=== PATIENT | female | born 1990 | race Caucasian/White ===

== ENCOUNTER → 2017-03-02 | Outpatient (CLI) | payer BC, OTHER ==
[~2017-03-02] MED LIST: ALLEGRA ALLERGY60 MG PO; CETI5 PO; FERSU90EL; IBUP800 PO; LONG ACTING NA120 MG PO; Verotin-Gr Cap1 EACH PO
[2017-03-03 03:04] LABS: Source Cervix
== END ==
LOC: LAB 09:52
PROVIDERS: Obstetrics & Gynecology
DX: Z11.3 Encounter for screening for infections with a predominantly sexual mode of transmission (principal); O30.099 Twin pregnancy, unable to determine number of placenta and number of amniotic sacs, unspecified trimester
CPT/HCPCS: 87491; 87591; G0123

== ENCOUNTER → 2017-08-10 | Outpatient (CLI) | payer BC, OTHER ==
[~2017-08-10] MED LIST changes: -FERSU90EL; -IBUP800 PO; -Verotin-Gr Cap1 EACH PO
== END ==
LOC: LAB 11:03 → LAB SHORT 11:03
DX: O30.099 Twin pregnancy, unable to determine number of placenta and number of amniotic sacs, unspecified trimester (principal)
CPT/HCPCS: 87081; 87653

== ENCOUNTER 2017-08-30 04:13 | Inpatient (IN) | payer BC, OTHER ==
[~2017-08-30] VITALS: Ht 170.2 cm; Wt 83.5 kg
[2017-08-30 04:38] LABS: BASOPHILS ABSOLUTE AUTO 0.02 K/mm3 (0.00-0.23); BASOPHILS PERCENT AUTO 0 % (0-2); EOSINOPHILS ABSOLUTE AUTO 0.34 K/mm3 (0.00-0.68); EOSINOPHILS PERCENT AUTO 4 % (0-6); Hematocrit 33.3 % (33.0-51.0); Hemoglobin 10.5 g/dL (11.5-16.0); IMMATURE GRAN ABSOLUTE AUTO 0.07 K/mm3 (0.00-0.10); IMMATURE GRAN PERCENT AUTO 1 % (0-1); LYMPHOCYTES ABSOLUTE AUTO 2.21 K/mm3 (0.84-5.20); LYMPHOCYTES PERCENT AUTO 25 % (21-46); MONOCYTES ABSOLUTE AUTO 0.56 K/mm3 (0.16-1.47); MONOCYTES PERCENT AUTO 6 % (4-13); Mean Corpuscular HGB 26.6 pg (26.0-34.0); Mean Corpuscular HGB Conc 31.5 g/dL (31.5-36.5); Mean Corpuscular Volume 85 fL (80-100); Mean Platelet Volume 11.6 fL (9.1-12.4); NEUTROPHILS ABSOLUTE AUTO 5.63 K/mm3 (1.96-9.15); NEUTROPHILS PERCENT AUTO 64 % (41-73); Platelet Count 173 K/mm3 (150-400); RDW Coefficient Variation 13.9 % (11.7-14.2); RDW Standard Deviation 42.9 fL (35.1-46.3); Red Blood Cell Count 3.94 M/mm3 (3.80-5.20); White Blood Cell Count 8.83 K/mm3 (4.00-11.30)
[2017-08-30] MEDS ORDERED: Verotin-Gr Cap1 EACH PO (04:39)
[2017-08-31 06:15] LABS: Hematocrit 28.7 % (33.0-51.0); Hemoglobin 9.3 g/dL (11.5-16.0); Mean Corpuscular HGB 27.6 pg (26.0-34.0); Mean Corpuscular HGB Conc 32.4 g/dL (31.5-36.5); Mean Corpuscular Volume 85 fL (80-100); Mean Platelet Volume 11.9 fL (9.1-12.4); Platelet Count 149 K/mm3 (150-400); RDW Coefficient Variation 13.9 % (11.7-14.2); Red Blood Cell Count 3.37 M/mm3 (3.80-5.20); White Blood Cell Count 11.99 K/mm3 (4.00-11.30)
[2017-08-31] MEDS ORDERED: FERSU90EL (14:23)
[2017-08-31] MEDS ORDERED: IBUP800 PO (14:24)
== END 2017-08-31 15:30 | disposition home or self-care (01) | DRG 775 ==
LOC: BC 04:13
PROVIDERS: Obstetrics & Gynecology
PROC: 10E0XZZ Delivery of Products of Conception, External Approach (ICD-10-PCS; principal; 2017-08-30)
PROC: 10907ZC Drainage of Amniotic Fluid, Therapeutic from Products of Conception, Via Natural or Artificial Opening (ICD-10-PCS; 2017-08-30)
PROC: 3E033VJ Introduction of Other Hormone into Peripheral Vein, Percutaneous Approach (ICD-10-PCS; 2017-08-30)
PROC: 00HU33Z Insertion of Infusion Device into Spinal Canal, Percutaneous Approach (ICD-10-PCS; 2017-08-30)
PROC: 3E0R3BZ Introduction of Anesthetic Agent into Spinal Canal, Percutaneous Approach (ICD-10-PCS; 2017-08-30)
DX: O30.043 Twin pregnancy, dichorionic/diamniotic, third trimester (principal); O32.1XX2 Maternal care for breech presentation, fetus 2; Z3A.37 37 weeks gestation of pregnancy; Z37.2 Twins, both liveborn
CPT/HCPCS: 36415; 51702; 85025; 85027; 86850; 86900; 86901; J2210; J2590; J7120

== ENCOUNTER → 2018-05-31 | Outpatient (CLI) | payer BC ==
[~2018-05-31] MED LIST changes: +FERSU90EL; +IBUP800 PO; +Verotin-Gr Cap1 EACH PO
[2018-06-02 15:06] LABS: HPV 16 Negative (Negative); HPV 18 Negative (Negative); HPV OTHER HR TYPES Negative (Negative)
== END | disposition home or self-care (01) ==
LOC: LAB SHORT 18:09 → LAB 18:09
PROVIDERS: Obstetrics & Gynecology
DX: Z01.419 Encounter for gynecological examination (general) (routine) without abnormal findings (principal)
CPT/HCPCS: 87624; G0123

== ENCOUNTER → 2019-06-07 | Outpatient (CLI) | payer BC | END | disposition home or self-care (01) | LOC: LAB 11:15 → LAB SHORT 11:15 | PROVIDERS: Obstetrics & Gynecology | DX: Z01.419 Encounter for gynecological examination (general) (routine) without abnormal findings (principal) | CPT/HCPCS: G0123 ==

== ENCOUNTER → 2022-11-12 | Outpatient (CLI) | payer BC, OTHER ==
[2022-11-16 15:09] LABS: HPV 16 Negative (Negative); HPV 18 Negative (Negative); HPV OTHER HR TYPES Negative (Negative)
== END | disposition home or self-care (01) ==
LOC: LAB 17:02 → LAB SHORT 17:02
PROVIDERS: Obstetrics & Gynecology
DX: Z01.419 Encounter for gynecological examination (general) (routine) without abnormal findings (principal)
CPT/HCPCS: 87624; G0145